=== PATIENT | male | born 1980 | race Two or more races ===

== ENCOUNTER 2025-04-18 14:39 | Emergency (ER) | payer MEDICAID, SELFPAY ==
--- NOTE | ~2025-04-18 | CT_ITS ---
CLINICAL HISTORY: head injury CT HEAD WITHOUT CONTRAST Comparison: None provided Findings: No acute intracranial hemorrhage, extra-axial fluid collection, hydrocephalus or midline shift. Mild generalized parenchymal atrophy. No significant white matter disease. There is no sinus or mastoid fluid. Visualized orbits: No acute abnormalities. There is no acute fracture. IMPRESSION: 1. No acute intracranial hemorrhage. This document has been electronically signed by: Annabel Parmar DO on 04/18/2025 17:32:02
--- NOTE | ~2025-04-18 | CT_ITS ---
CLINICAL HISTORY: fall CT MAXILLOFACIAL WITHOUT CONTRAST Comparison: None provided Findings: No acute fractures. Temporomandibular joints are intact. Nonspecific mild mucosal thickening in the bilateral maxillary sinuses. Nonspecific opacification of a few bilateral ethmoid air cells. No mastoid fluid. Visualized orbits: No acute abnormalities. No foreign bodies. Please see the separate report for the CT head/brain. IMPRESSION: No acute maxillofacial fracture or acute sinonasal disease. This document has been electronically signed by: Annabel Parmar DO on 04/18/2025 17:39:41
[2025-04-18 14:48] VITALS: BP 126/99; PULSE 124; RESP 19; TEMP 36.6; O2SAT 98; BMI 27.3
--- NOTE | 2025-04-18 15:02 | ECG_ITS ---
Test Reason : CHEST PAIN Blood Pressure : */* mmHG Vent. Rate : 71 BPM Atrial Rate : 71 BPM P-R Int : 118 ms QRS Dur : 130 ms QT Int : 404 ms P-R-T Axes : 39 45 -3 degrees QTcB Int : 439 ms Normal sinus rhythm Right bundle branch block T wave abnormality, consider inferior ischemia Abnormal ECG No previous ECGs available Referred By: Laura Patton Electronically Signed By: CLEMENT QUIÑONEZ MD
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
[2025-04-18 15:15] LABS: MANUAL DIFF FLAG NO
[2025-04-18 15:16] LABS: Hematocrit 44.1 % (42.0-52.0); Hemoglobin 15.5 g/dl (14.0-18.0); Imm Gran Abs Auto 0.02 X10*3/uL (0.00-0.03); Imm Gran Pct Auto 0.2 % (0.0-0.4); Lymphocytes Absolute Auto 0.9 X10*3/uL (1.2-4.9); Mean Corpuscular HGB Conc 35.1 g/dl (31.0-36.0); Mean Corpuscular Hemoglobin 29.8 pg (27.0-33.0); Mean Corpuscular Volume 84.8 fL (80.0-98.0); NRBC Abs Auto 0.000 X10*3/uL (0.0-0.012); NRBC Pct Auto 0.0 /100WBC (0.0-0.2); Platelet Count 227 X10*3/uL (160-400); Red Blood Count 5.20 X10*6/uL (4.60-5.80); White Blood Count 9.0 X10*3/uL (4.8-10.8)
[2025-04-18] MEDS: Diphth,Pertus(ACell),Tet Adult 0.5 ML SYRINGE IM (15:20)
[2025-04-18 15:36] LABS: Anion Gap 13 (12-20); Blood Urea Nitrogen 17 mg/dL (9-16); Calcium 9.4 mg/dL (8.4-10.2); Carbon Dioxide 24 mmol/L (22-29); Chloride 108 mmol/L (96-108); Creatinine Clr Calc Pharmacy 74.4; Estimated Glomerular Filt Rate > 60; Potassium 4.1 mmol/L (3.3-5.1); Sodium 141 mmol/L (135-145)
[2025-04-18 15:45] VITALS: BP 127/82; PULSE 69; RESP 16; TEMP 36.8; O2SAT 98
[2025-04-18 18:11] VITALS: BP 127/82; PULSE 69; RESP 16; TEMP 36.8; O2SAT 98
== END 2025-04-18 18:11 | disposition home or self-care (01) ==
PROVIDERS: Emergency Provider Emergency Medicine Emergency Medical Services; PCP Dentist General Practice
DX: S00.83XA Contusion of other part of head, initial encounter (principal); S00.511A Abrasion of lip, initial encounter; R07.89 Other chest pain; I45.10 Unspecified right bundle-branch block; X58.XXXA Exposure to other specified factors, initial encounter; Y93.9 Activity, unspecified; Y92.9 Unspecified place or not applicable; Y99.8 Other external cause status; Z23 Encounter for immunization; Z51.81 Encounter for therapeutic drug level monitoring
CPT/HCPCS: 36415; 70450; 70486; 80048; 80307; 82550; 85025; 90471; 90715; 93005; 96360; 99284

== ENCOUNTER → 2025-04-18 15:02 | Outpatient (BNV) | payer MEDICAID, SELFPAY | PROVIDERS: Emergency Provider Emergency Medicine Emergency Medical Services; PCP Dentist General Practice; Visit Provider Internal Medicine Cardiovascular Disease | DX: I45.10 Unspecified right bundle-branch block (principal) | CPT/HCPCS: 93010 ==

== ENCOUNTER → 2025-04-18 15:03 | Outpatient (BNV) | payer MEDICAID, SELFPAY | PROVIDERS: Emergency Provider Emergency Medicine Emergency Medical Services; PCP Dentist General Practice; Visit Provider Radiology Diagnostic Radiology | DX: S09.90XA Unspecified injury of head, initial encounter (principal) | CPT/HCPCS: 70450; 70486 ==